=== PATIENT | female | born 1975 | race Two or more races ===

== ENCOUNTER 2017-05-13 22:57 | Emergency (ER) | END 2017-05-14 06:00 | disposition home or self-care (01) ==

== ENCOUNTER 2017-07-15 13:55 | Emergency (ER) | END 2017-07-15 16:19 | disposition home or self-care (01) ==

== ENCOUNTER 2018-12-10 11:29 | Emergency (ER) | payer MEDICAID ==
[~2018-12-10] VITALS: Ht 144.8 cm; Wt 73.7 kg
[~2018-12-10 11:29] MED LIST: IBUP-1542 PO; LORA-441 PO; OMEP20CA16 PO; POLY17PO6 PO; TRAM50TA2 PO; UDMYL PO
[2018-12-10 11:43] VITALS: BP 156/83; PULSE 76; RESP 22; Ht 144.8 cm; Wt 73.7 kg
[2018-12-10] MEDS ORDERED: LORAZEPAM 0.5 MG TAB PO ONE (12:30)
== END 2018-12-10 13:01 | disposition home or self-care (01) ==
LOC: FTE 11:29
DX: F41.9 Anxiety disorder, unspecified (principal); I10 Essential (primary) hypertension; R20.0 Anesthesia of skin
CPT/HCPCS: 93005; Z7502; Z7610